=== PATIENT | female | born 1975 | race Hispanic/Latino ===

== ENCOUNTER 2020-11-01 09:40 | Emergency (ER) | payer BC ==
[2020-11-01] MEDS ORDERED: FENTANYL CITRATE PF 50 MCG/1 ML 2ML VIAL ONE (10:14)
[2020-11-01] MEDS ORDERED: LIDOCAINE HCL 400MG/20ML VIAL ONE (10:14)
[2020-11-01] MEDS ORDERED: TETANUS/DIPHTHERIA TOXOID [ADULT] 0.5 ML VIAL IM ONE (10:15)
[2020-11-01] MEDS ORDERED: CLINDAMYCIN 150 MG CAP ONE (11:26)
== END 2020-11-01 11:41 | disposition home or self-care (01) ==
LOC: EDH 09:40
DX: S51.811A Laceration without foreign body of right forearm, initial encounter (principal); R03.0 Elevated blood-pressure reading, without diagnosis of hypertension; Z72.0 Tobacco use; Z88.0 Allergy status to penicillin; W54.0XXA Bitten by dog, initial encounter; Y93.01 Activity, walking, marching and hiking; Y92.488 Other paved roadways as the place of occurrence of the external cause; Y99.8 Other external cause status
CPT/HCPCS: 12032; 73090; 90471; 90714; 96372; 99284; J3010; J3490

== ENCOUNTER 2020-11-08 10:46 | Emergency (ER) | payer BC ==
[2020-11-08] MEDS ORDERED: SODIUM CHLORIDE 0.9% 1000ML 1,000 ML IV ONE (12:32)
== END 2020-11-08 11:43 | disposition home or self-care (01) ==
LOC: EDH 10:46
DX: S51.811D Laceration without foreign body of right forearm, subsequent encounter (principal); Z88.0 Allergy status to penicillin; Z72.0 Tobacco use; X58.XXXD Exposure to other specified factors, subsequent encounter
CPT/HCPCS: 99281; J7030